=== PATIENT | female | born 1955 | race Caucasian/White ===

== ENCOUNTER 2017-05-08 14:28 | Emergency (ER) | payer MEDICAID ==
[~2017-05-08] VITALS: Ht 170.2 cm; Wt 77.0 kg
[2017-05-08 14:37] VITALS: BP 142/72
[2017-05-08] MEDS ORDERED: METF500T4 PO (14:41)
[2017-05-08] MEDS ORDERED: LISI2.5T47 PO (14:41)
== END 2017-05-08 19:50 | disposition left against medical advice (07) ==
LOC: ER 15:18
DX: R10.9 Unspecified abdominal pain (principal); R06.02 Shortness of breath; Z53.21 Procedure and treatment not carried out due to patient leaving prior to being seen by health care provider